=== PATIENT | female | born 1935 | race Caucasian/White ===

== ENCOUNTER 2017-02-25 14:46 | Emergency (ER) | payer MEDICARE ==
[~2017-02-25] VITALS: Ht 160 cm; Wt 70.5 kg
[~2017-02-25 14:46] MED LIST: ALEN70TA30 PO; ASPI81TA3 PO; CHOL100062 PO; DONE10TA7 PO; DULO30CA45 PO; FERR325C PO; MEMA14CA PO
[2017-02-25 15:00] VITALS: Ht 160 cm; Wt 70.5 kg
[2017-02-25] MEDS ORDERED: ALBUTEROL 0.5% (NEB) 2.5 MG/0.5 ML AMP INH STA (15:29)
[2017-02-25] MEDS ORDERED: IPRATROPIUM (NEB) 0.5 MG/2.5 ML AMP INH STA (15:29)
--- NOTE | 2017-02-25 16:12 | RADRPT ---
PROCEDURE: XR Chest. CLINICAL INDICATION: Possible Sepsis TECHNIQUE: Single frontal view of the chest was obtained. COMPARISON: Chest x-ray from 06/28/2015 FINDINGS: There is mild cardiomegaly. The aortic arch is calcified. There is mild prominence of interstitial markings, likely due to mild congestion on a background of chronic and / or senescent changes. There is obscuration of the medial aspect of the left hemidiaphragm due to atelectasis, infiltrate, and / or a small effusion. There is decreased osseous mineralization. IMPRESSION: Mild cardiomegaly and congestion on a background of chronic and / or senescent changes. Obscuration of the left hemidiaphragm due to atelectasis, infiltrate, and / or a small effusion. Aortic atherosclerosis. Osseous demineralization. RPTAT: EE Physician Cheryl Date Time Electronically viewed and signed by Raj Clarke Physician on 02/25/2017 16:11 /
[2017-02-25 16:31] LABS: ADD SCAN DIFF NO
[2017-02-25 16:35] LABS: BASOPHIL # 0.1 10^3/ul (0.0-0.1); BASOPHILS % 0.3 % (0.0-2.0); EOSINOPHILS # 0.4 10^3/ul (0.0-0.5); EOSINOPHILS % 2.2 % (0.0-7.0); HEMATOCRIT 38.9 % (37.0-47.0); HEMOGLOBIN 11.7 g/dl (12.0-16.0); MEAN CORPUSCULAR HEMOGLOBIN 25.1 pg (29.0-33.0); MEAN CORPUSCULAR HGB CONC 30.1 g/dl (32.0-37.0); MEAN CORPUSCULAR VOLUME 83.5 fl (82.0-101.0); MEAN PLATELET VOLUME 10.5 fl (7.4-10.4); MONOCYTE # 0.9 10^3/ul (0.3-0.9); MONOCYTES % 4.9 % (0.0-11.0); NEUTROPHIL # 13.4 10^3/ul (1.6-7.5); NEUTROPHILS % 75.2 % (39.0-77.0); PLATELET COUNT 504 10^3/UL (140-415); RED BLOOD COUNT 4.66 10^6/ul (4.20-5.40); RED CELL DISTRIBUTION WIDTH 16.3 % (11.5-14.5); WHITE BLOOD COUNT 17.8 10^3/ul (4.8-10.8)
--- NOTE | 2017-02-25 16:43 | ERD ---
ER Documentation Chief Complaint Date/Time DATE: 02/25/17 TIME: 16:34 Chief Complaint desating in ambulance home from wound care clinic HPI This is a 81-year-old demented bedbound female that was brought into the emergency department by a ambulance crew [place] the wound clinic to return to her house when she had an episode of hypoxia. EMS indicated that the patient had a sudden onset of hypoxia with desaturation to 80%. She was placed on 4 L of nasal cannula and improved to 96%. They stated there is no coughing choking or gagging episode. They indicated that the patient's son was requesting that the patient be moved onto her side which would improve her hypoxia but EMS stated they were instructed by wound care nurses for her to lie supine. Therefore the patient was not repositioned and the son became very upset when the ambulance crew stated that they felt it was necessary to divert to the nearest hospital which was [facility]. The patient is a poor historian given that she has a history of dementia and all history was provided by the son. Indicates that she has a home health care nurse who comes 3 times a day to the house to help the patient attend to her activities of daily living. The patient is not currently on antibiotics. The patient has been going to the wound clinic for several months for treatment of her sacral decubitus ulcers in her right calcaneus ulcer. ROS All systems reviewed and are negative except as per history of present illness. Medications Home Meds Reported Medications Cholecalciferol* (Vitamin D3*) 1,000 Unit Tablet, 1000 UNIT PO DAILY, TAB 06/16/15 Ferrous Sulfate (Iron) 325 Mg Capsr, 325 MG PO DAILY 06/16/15 Aspirin (Aspirin) 81 Mg Chew, 81 MG PO DAILY, TAB.CHEW 06/16/15 Donepezil* (Aricept*) 10 Mg Tablet, 10 MG PO DAILY, TAB 06/16/15 Memantine* (Namenda* XR) 14 Mg Cap.spr.24, 14 MG PO DAILY, TAB 06/16/15 Duloxetine Hcl* (Cymbalta*) 30 Mg Capsule.dr, 30 MG PO HS, CAP 06/16/15 Alendronate Sodium* (Fosamax*) 70 Mg Tablet, 70 MG PO Q7D, TAB 06/16/15 Allergies Allergies: Coded Allergies: No Known Allergy (Unverified , 06/17/15) PMhx/Soc History of Surgery: Yes Anesthesia Reaction: No Hx Neurological Disorder: No Hx Respiratory Disorders: No Hx Cardiac Disorders: No Hx Psychiatric Problems: No Hx Miscellaneous Medical Probl: No (DEMENTIA, OSTEOPOROSIS, OSTEOPENIA, LT HIP REPLACEMENT, DJD) Hx Alcohol Use: No Hx Substance Use: No Hx Tobacco Use: No Smoking Status: Never smoker Physical Exam Vitals Vital Signs Date Time Temp Pulse Resp B/P Pulse Ox O2 Delivery O2 Flow Rate FiO2 02/25/17 15:00 100.9 96 20 121/73 97 Physical Exam Constitutional:Well-developed. Cachectic female not in acute respiratory distress. HEENT:Normocephalic. Atraumatic.Pupils were equal round reactive to light. Moist mucous membranes.No tonsillar exudates. Neck: No nuchal rigidity. No lymphadenopathy. No posterior cervical spine tenderness or step-offs. Respiratory: Not using accessory muscles of respiration.Lungs were clear to auscultation bilaterally. No rhonchi. No rales. No wheezing. Cardiovascular: Regular rate regular rhythm.No murmurs. No rubs were appreciated.S1, S2 normal. Distal pulses are palpable 2+ bilaterally. GI: Abdomen was soft. Nontender. Non Distended. No pulsatile abdominal masses or bruits. No rebound. No guarding. Bowel sounds were present and normal. Muscle skeletal: Muscle atrophy of the bilateral lower extremities. Full range motion of the bilateral upper extremities. Patient had no movement of the bilateral lower extremities and this is her baseline Skin: No petechia, no purpura. No lesions on the palms or the soles of the feet. No maculopapular rash. Stage III sacral decubitus ulcers. 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 Does not follow verbal command. Gait not observed Results 24 hrs Current Medications Medications (Trade) Dose Ordered Sig/Jamison Route PRN Reason Start Time Stop Time Status Last Admin Dose Admin Albuterol (Proventil 0.5% (Neb)) 5 mg ONCE STAT INH 02/25/17 15:29 02/25/17 15:46 DC Ipratropium Muscoda (Atrovent 0.02% (Neb)) 1 mg ONCE STAT INH 02/25/17 15:29 02/25/17 15:46 DC Procedures/MDM This patient presented to the emergency department with hypoxia. When she arrived she was on 4 L nasal cannula satting at roughly 96%. When I removed the supplemental oxygen the patient was now at 90% on room air. Ancillary laboratory work had been obtained as obtained a chest radiograph which indicated the following: Mild cardiomegaly and congestion on a background of chronic and / or senescent changes. Obscuration of the left hemidiaphragm due to atelectasis, infiltrate, and / or a small effusion. Aortic atherosclerosis. Osseous demineralization. 12 Lead EKG tracing ordered and reviewed by myself showed: Sinus tachycardia 102 bpm and no arrhythmia. [place] interval normal. QRS duration normal. No ST segment elevation No ST segment depression. No changes consistent with acute ischemia. Please note that this time I explained to the son that I felt it was necessary to obtain further ancillary laboratory work as the patient had a low-grade fever and I could not rule out underlying sepsis. The son was very adamant that he wanted to leave AGAINST MEDICAL ADVICE despite me explaining the risks which could lead to worsening of the patient's condition such as , however the son, who is the patient's medical advocate, indicated he was very aware of all risks of leaving AMA, but stated he was fine all necessary documents as he would feel more comfortable the patient home, where she sees her normal regular physicians and home health care nurse. He was however instructed that he can return to the emergency department any time if there is any worsening of the patient's conditions. Departure Diagnosis: Primary Impression: Hypoxia Additional Impression: Left against medical advice Condition: Serious KATHARINAMIKIEA Feb 25, 2017 16:43
[2017-02-25 16:54] LABS: ALANINE AMINOTRANSFERASE 14 IU/L (13-69); ALBUMIN 3.2 g/dl (3.3-4.9); ALBUMIN/GLOBULIN RATIO 0.72; ALKALINE PHOSPHATASE 78 IU/L (42-121); ANION GAP 9 (8-16); ASPARTATE AMINO TRANSFERASE 26 IU/L (15-46); BILIRUBIN,INDIRECT 0.2 mg/dl (0-1.1); BILIRUBIN,TOTAL 0.2 mg/dl (0.2-1.3); BLOOD UREA NITROGEN 14 mg/dl (7-20); CALCIUM 8.9 mg/dl (8.4-10.2); CARBON DIOXIDE 27 mmol/L (21-31); CHLORIDE 107 mmol/L (97-110); CREATININE 0.53 mg/dl (0.44-1.00); GLUCOSE 107 mg/dl (70-220); POTASSIUM 4.1 mmol/L (3.5-5.1); SODIUM 139 mmol/L (135-144); TOTAL PROTEIN 7.6 g/dl (6.1-8.1)
[2017-02-25 17:06] VITALS: BP 116/76; PULSE 100; RESP 20; TEMP 100.9
[2017-02-25 17:11] LABS: TROPONIN-I < 0.012 ng/ml (0.00-0.12)
== END 2017-02-25 17:07 | disposition left against medical advice (07) ==
LOC: EDBD 14:46 → E/R 14:46
DX: R09.02 Hypoxemia (principal); R40.2142 Coma scale, eyes open, spontaneous, at arrival to emergency department; R40.2252 Coma scale, best verbal response, oriented, at arrival to emergency department; R40.2362 Coma scale, best motor response, obeys commands, at arrival to emergency department; Z79.82 Long term (current) use of aspirin; Z96.642 Presence of left artificial hip joint
CPT/HCPCS: 36415; 71010; 80053; 83605; 84484; 85025; 87040; 93005